=== PATIENT | male | born 1970 | race Two or more races ===

== ENCOUNTER 2022-11-23 11:10 | Emergency (ER) | payer OTHER ==
[~2022-11-23] VITALS: Ht 172.7 cm; Wt 117.9 kg
[2022-11-23] MEDS ORDERED: SIMVASTATIN10 MG PO (11:28)
[2022-11-23] MEDS ORDERED: METFORMIN HCL1000 M3 PO (11:28)
[2022-11-23] MEDS ORDERED: GLIPIZIDE10 MG PO (11:28)
[2022-11-23] MEDS ORDERED: METOPROLOL SUCC50 MG PO (11:29)
[2022-11-23] MEDS ORDERED: GEMFIBROZIL600 MG PO (11:29)
[2022-11-23] MEDS ORDERED: IRBESARTAN300 MG PO (11:29)
== END 2022-11-23 14:48 | disposition home or self-care (01) ==
LOC: ER 11:10
DX: T67.01XA Heatstroke and sunstroke, initial encounter (principal); R42 Dizziness and giddiness; X30.XXXA Exposure to excessive natural heat, initial encounter; Y93.89 Activity, other specified; Y92.89 Other specified places as the place of occurrence of the external cause; Y99.8 Other external cause status